=== PATIENT | male | born 1955 | race Caucasian/White ===

== ENCOUNTER 2023-12-30 00:08 | Day surgery (SDC) | payer BC, SELFPAY ==
[2023-12-16 09:55] VITALS: BMI 26.9
[2023-12-30 09:54] VITALS: BP 126/83; PULSE 70; RESP 18; TEMP 36.1; O2SAT 98
[2023-12-30] MEDS: LACTATED RINGERS 1,000 ML 150 ML IV CONT (10:05)
--- NOTE | 2023-12-30 10:29 | P.PNAN_ITS ---
Anes - Initial Pre Proc Eval Procedure: Operation Date: 12/30/23 11:00 Proposed Procedures p Colonoscopy - Lauri Jennings MD Date/Time: 12/30/23 10:29 Surgeon: Lauri Jennings MD Pre Op Diagnosis: Personal history colon polyps Patient Data Age: 68 Gender: M Height: 1.7 m Weight: 76.7 kg Last Vital Signs Temp 36.1 C L 12/30/23 09:54 Pulse 70 12/30/23 09:54 Resp 18 12/30/23 09:54 BP 126/83 12/30/23 09:54 Pulse Ox 98 12/30/23 09:54 O2 Del Method Room Air 12/30/23 09:54 Allergies Allergy/AdvReac Type Severity Reaction Status Date / Time No Known Allergies Allergy Verified 12/30/23 09:52 Home Medications Medication Instructions Recorded Confirmed Type hydrochlorothiazide 12.5 mg capsule 12.5 mg PO DAILY #90 caps 06/25/23 12/16/23 Rx sertraline 25 mg tablet (Zoloft) 25 mg PO DAILY #90 tabs 06/25/23 12/16/23 Rx lisinopril 40 mg tablet 40 mg PO DAILY #90 tabs 09/14/23 12/16/23 Rx Patient hx anesthesia problems: none Family hx anesthesia problems: none Results Review: All pre-operative results and documents have been reviewed as part of the pre- operative evaluation. [facility] Past Medical History Medical History History of colon polyps HTN (hypertension) IFG (impaired fasting glucose) Irritability Family History Family History Father Family history of malignant neoplasm Other Diabetes mellitus Social History Social History Smoking packs per day: 1 Smoking cigarettes per day: 20.0 Years smoked: 40 Smoking pack-years: 40.00 Smoking status: Current every day smoker Tobacco type: pipe and cigars Second hand tobacco smoke exposure: No Smoking end date: 07/06/12 Additional smoking assessment comments: Only pipe. Quit cigarettes in 2012 Alcohol intake: never Substance use: never Substance use type: does not use Living arrangements: with family Occupation/Education: occupation Gender identity (if verbalized by the patient): Male Spiritual care concerns: No Anes - Eval Final PreProcedure Day of Procedure 12/30/23 10:29 Patient weight: overweight Heart: regular rate and rhythm Lungs: decreased breath sounds Airway: Mallampati scale class II Neurological: alert and oriented Last oral intake: >/= 8 hours ASA classification: III Emergent: no Anesthetic plan: proceed Anesthesia type and monitoring: general GIVS and standard monitoring Results Review: All pre-operative results and documents have been reviewed as part of the pre- operative evaluation. Informed Consent: The patient's anesthetic plan and its attendant risks and benefits were discussed with the patient/family/POA. Questions were solicited and answers provided to the satisfaction of the patient/family/POA.
--- NOTE | 2023-12-30 10:57 | PM.HPGS ---
History of Present Illness History of Present Illness Consent: Risks, benefits, and alternatives have been discussed and questions answered. Patient agrees to proceed with procedure. Chief complaint: Personal history colon polyps Narrative: Nader Nunez is a 68 year old male with colon polyp in 2019 Review of Systems Review of Systems: All systems reviewed & are unremarkable except as noted in HPI and below PMFSH Past Medical History Medical History (Updated 12/30/23 @ 10:59 by Lauri Jennings MD) History of colon polyps HTN (hypertension) IFG (impaired fasting glucose) Irritability Family History Family History Father Family history of malignant neoplasm Other Diabetes mellitus Social History Social History Smoking packs per day: 1 Smoking cigarettes per day: 20.0 Years smoked: 40 Smoking pack-years: 40.00 Smoking status: Current every day smoker Tobacco type: pipe and cigars Second hand tobacco smoke exposure: No Smoking end date: 07/06/12 Additional smoking assessment comments: Only pipe. Quit cigarettes in 2012 Alcohol intake: never Substance use: never Substance use type: does not use Living arrangements: with family Occupation/Education: occupation Gender identity (if verbalized by the patient): Male Spiritual care concerns: No Meds Home Medications and Allergies Home Medications Medication Instructions Recorded Confirmed Type hydrochlorothiazide 12.5 mg capsule 12.5 mg PO DAILY #90 caps 06/25/23 12/16/23 Rx sertraline 25 mg tablet (Zoloft) 25 mg PO DAILY #90 tabs 06/25/23 12/16/23 Rx lisinopril 40 mg tablet 40 mg PO DAILY #90 tabs 09/14/23 12/16/23 Rx Allergies Allergy/AdvReac Type Severity Reaction Status Date / Time No Known Allergies Allergy Verified 12/30/23 09:52 Vital Signs Vital Signs - 24 hr 12/30/23 09:54 Temperature 97 F L Pulse Rate 70 Respiratory Rate 18 Blood Pressure 126/83 Pulse Oximetry 98 Oxygen Delivery Room Air Exam Const: General: comfortable and no acute distress HENMT: Face/Nose/Sinus: Normal nares present Eyes: General: appearance normal, both eyes and all related structures Neck: Neck: no JVD Resp: Auscultation: clear to auscultation bilaterally Cardio: Rate: regular rate Rhythm: regular rhythm GI: Inspection: non-distended GI Palp: Yes Soft to palpation Skin: General skin exam: normal color Neuro: General: gait normal Speech: normal speech Extrem: General: normal to inspection Psych: Mental Status: mental status grossly normal Assessment and Plan Assessment and plan (1) History of colon polyps: Code(s): Z86.010 - Personal history of colonic polyps Status: Acute Assessment and Plan: colonoscopy
[2023-12-30 11:16] VITALS: BP 97/58; PULSE 57; RESP 18; O2SAT 96
[2023-12-30 11:26] VITALS: BP 111/63; PULSE 56; RESP 18; O2SAT 97
[2023-12-30 11:33] VITALS: BP 103/73; PULSE 57; RESP 18; O2SAT 97
== END 2023-12-30 11:50 | disposition home or self-care (01) ==
PROVIDERS: PCP Family Medicine; Visit Provider Internal Medicine Gastroenterology
PROC: 0DJD8ZZ Inspection of Lower Intestinal Tract, Via Natural or Artificial Opening Endoscopic (ICD-10-PCS; CPT 45378; principal; 2023-12-30 11:00)
DX: Z12.11 Encounter for screening for malignant neoplasm of colon (principal); D12.3 Benign neoplasm of transverse colon; K64.8 Other hemorrhoids; K57.30 Diverticulosis of large intestine without perforation or abscess without bleeding; I10 Essential (primary) hypertension; R73.01 Impaired fasting glucose; F17.290 Nicotine dependence, other tobacco product, uncomplicated; Z86.010 Personal history of colon polyps; Z80.9 Family history of malignant neoplasm, unspecified
CPT/HCPCS: 45385; 88305; J2704; J7120